=== PATIENT | female | born 1965 | race Caucasian/White ===

== ENCOUNTER 2024-01-01 23:05 | Observation (INO) ==
--- NOTE | 2024-01-01 23:29 | Emergency Department Note ---
Impression & Plan Alteration in vision ED Provider Note HISTORY OF PRESENT ILLNESS: Patient is a 58-year-old female presenting with loss of vision in her right eye. Patient reports that yesterday she noticed black floaters occurring in a curvilinear pattern from the right lateral visual field into her lower visual field in the right eye. States that she just thought it was her blood pressure. She states that today she noticed an increase in the floaters and "sometime around lunchtime" she noticed that she could not see where the floaters had previously been located. Reports that it was a black curvilinear shape involving the lateral part of her right eye and into her inferior visual field. Denies any DVT or PE history. She not on any anticoagulation. She does take a baby aspirin daily. Denies any recent head injuries or chiropractic manipulation of her neck. Denies any numbness, tingling or weakness in her extremities. Denies any slurred speech or difficulty swallowing. She does report that yesterday she was bit by a tick and was able to remove the tick on her right upper arm. Denies any chest pain or shortness of breath. ROS: as above PHYSICAL EXAM: Constitutional: Patient appears in no acute distress. HENT: Head: Normocephalic and atraumatic. Eyes: EOMI, PERRL Mouth/Throat: Mucous membranes moist. Neck: Trachea midline. Neck supple. Cardiovascular: RRR, No murmurs, rubs or gallops. Intact distal pulses. Pulmonary/Chest: No respiratory distress. Breath sounds clear and equal bilaterally. No wheezes or rales. Abdominal: Abdomen soft, no tenderness, rebound or guarding. Musculoskeletal: No edema, tenderness or deformity noted. Skin: Warm and dry. No rash, erythema, pallor or cyanosis Psychiatric: Appropriate mood and affect for situation. Neurological: Alert and keenly responsive. Facies symmetric. Able to raise eyebrows, close eyes, smile, puff mouth, stick out tongue, move tongue left and right and raise palate symmetrically. Able to shrug shoulders. PERRLA. SILT to forehead below eye and at jawline. Can hear soft noise bilaterally. Strength 5/5 in bilateral upper and lower extremities. SILT throughout bilateral upper and lower extremities. When visual wiggins are tested, patient is able to see in the periphery and distinguish number of fingers held up for both eyes. It appears she has intact lateral and medial visual wiggins. MDM: - Vitals signs showed hypertension - History obtained via patient. History as above. - Chronic conditions affecting care: HTN; HLD - Differential diagnoses include, but are not limited to: CVA; intracranial hemorrhage; retinal detachment; hypertensive urgency - Order placed for continuous cardiac monitoring. At this time, monitor showed rate of 66 bpm with normal sinus rhythm, per my interpretation. - External medical records reviewed. - EKG interpreted by myself showed normal sinus rhythm. Rate 66 bpm. QT 426. No acute ischemic changes. - Laboratory workup interpreted by myself showed normal WBC; normal PT/INR; stable electrolytes; normal troponin - UA negative for infection. Noted to have blood. - CT head wo contrast negative for acute intracranial hemorrhage, per my interpretation - CTA head/neck negative for LVO or acute pathology. - I did do a bedside ocaez-he-wlzv ultrasound of the right eye to assess for retinal detachment. No obvious retinal detachment or papilledema. - Patient is outside of the window for TNK, given her unknown last known well. She also has no evidence of LVO. Will admit to hospital service for further strokelike workup, including echocardiogram and MRI. - Discussion was had with bilingual case manager about patient's case and need for admission - Hospitalist consulted for admission - Patient admitted to [facility] service for further evaluation and management. ASSESSMENT AND PLAN: Diagnosis: alteration in vision Plan: admit Past Med/Surg History Problem List (Updated 01/02/24 @ 02:10 by Haleigh Renee MD) Alteration in vision (Acute) Social History Smoking Status: Current every day smoker Tobacco Type: Cigarettes and E-cigarettes / Vaping Preferred Language: [place] Feels Safe at Home: Yes Results & Data (ED) Vital Signs Vital Signs - 24 hr 01/01/24 23:12 01/01/24 23:33 01/01/24 23:40 Temperature 36.5 C Temperature Source Temporal Artery Scan Pulse Rate 66 70 63 Pulse Rate [Apical] Pulse Rhythm Regular Pulse Rhythm [Apical] Pulse Strength [Apical] Respiratory Rate 20 18 Respiratory Effort / Characteristics Respiratory Depth Respiratory Pattern Blood Pressure 186/90 H Blood Pressure [Right Arm] Blood Pressure Mean 122 Blood Pressure Mean [Right Arm] Blood Pressure Position [Right Arm] Pulse Oximetry 98 96 Oxygen Delivery Method Room Air Room Air Sepsis Recent Fever Within 48 Hours No Sepsis New/Unexplained Change in Mental Status No Sepsis Action Taken by Nursing No Action Required 01/02/24 00:06 Temperature Temperature Source Pulse Rate Pulse Rate [Apical] 63 Pulse Rhythm Pulse Rhythm [Apical] Regular Pulse Strength [Apical] Normal Respiratory Rate 18 Respiratory Effort / Characteristics Non-Labored Spontaneous Respiratory Depth Normal Respiratory Pattern Regular Blood Pressure Blood Pressure [Right Arm] 178/96 H Blood Pressure Mean Blood Pressure Mean [Right Arm] 123 Blood Pressure Position [Right Arm] Lying Pulse Oximetry 98 Oxygen Delivery Method Room Air Sepsis Recent Fever Within 48 Hours Sepsis New/Unexplained Change in Mental Status Sepsis Action Taken by Nursing Laboratory Data 01/01/24 23:33 01/01/24 23:33 Lab Results 01/01/24 01/01/24 01/01/24 Range/Units 23:33 23:40 23:46 WBC 6.98 (4.8-10.8) K/ul RBC 4.95 (4.20-5.40) M/uL Hgb 13.9 (12.0-16.0) g/dl POC Hgb 14.3 (12.0-16.0) g/dl Hct 41.7 (37.0-47.0) % POC Hct 42 (37-47) % MCV 84.2 (80.0-100.0) fL MCH 28.1 (25.0-34.0) pg MCHC 33.3 (32.0-36.0) g/dL RDW Std Deviation 41.5 (36.4-46.3) fL RDW Coeff of [place] 13.4 (11.5-14.5) % Plt Count 256 (130-400) K/uL MPV 11.0 (9.4-12.4) fL Immature Gran % (Auto) 0.3 % Neut % (Auto) 42.8 % Lymph % (Auto) 44.6 % [place] % (Auto) 8.7 % Eos % (Auto) 2.6 % Baso % (Auto) 1.0 % Neut # (Auto) 2.99 (1.40-6.50) K/uL Lymph # (Auto) 3.11 (1.20-3.40) K/uL [place] # (Auto) 0.61 H (0.11-0.59) K/uL Eos # (Auto) 0.18 (0.00-0.50) K/uL Baso # (Auto) 0.07 (0.00-0.20) K/uL Immature Gran # (Auto) 0.02 (0.01-0.20) K/uL PT 10.3 (9.0-12.0) Seconds INR 0.9 (0.9-1.1) POC Sodium 138 (135-144) mmol/L Sodium 137 (136-145) mmol/L POC Potassium 4.1 (3.3-5.0) mmol/L Potassium 4.1 (3.5-5.1) mmol/L POC Chloride 106 (101-112) mmol/L Chloride 105 (98-107) mmol/L Carbon Dioxide 25 (21-32) mmol/L POC Total CO2 24 (24-31) mmol/L Anion Gap 7 (3-11) POC Anion Gap 14.0 L (16-25) mmol/L POC BUN 14 (7-18) mg/dl BUN 16 (6-23) mg/dl Creatinine 0.76 (0.6-1.2) mg/dl POC Creatinine 0.7 (0.6-1.3) mg/dl Est Cr Clr Drug Dosing 91.8 ml/min Est GFR ( Amer) 100.2 ml/min Est GFR (Non-Af Amer) 86.5 ml/min BUN/Creatinine Ratio 21.1 H (10-20) Glucose 104 H (70-99(Fasting)) mg/dl POC Glucose (other) 103 H (70-99) mg/dl Calcium 9.7 (8.6-10.3) mg/dl POC Ioniz Calcium Bird 1.21 (1.12-1.32) mmol/l Total Bilirubin 0.3 (0.2-1.0) mg/dl AST 21 (13-39) U/L ALT 24 (7-52) U/L Alkaline Phosphatase 61 (34-104) U/L Troponin I High Sens < 2.3 (0-14) pg/ml Total Protein 7.2 (6.0-8.3) gm/dl Albumin 4.6 (3.4-5.0) gm/dl Globulin 2.6 (2.5-4.0) gm/dl Albumin/Globulin Ratio 1.8 (0.9-2) Urine Color Yellow Urine Appearance Clear (Clear) Urine pH 5.5 (4.5-7.5) Ur Specific [place] 1.012 (1.000-1.030) Urine Protein Negative (Negative) Urine Glucose (UA) Negative (Negative) Urine Ketones Negative (Negative) Urine Blood 2+ H (Negative) Urine Nitrite Negative (Negative) Urine Bilirubin Negative (Negative) Urine Urobilinogen Negative (Negative) Ur Leukocyte Esterase 1+ H (Negative) Urine WBC (Auto) 0-5 (0-5) /hpf Urine RBC (Auto) 11-20 H (0-2) /hpf U Hyaline Cast (Auto) 0-2 (0-2) /lpf U Epithel Cells (Auto) 0-2 (0-2) /hpf Urine Bacteria (Auto) None Seen (None Seen) Administered Medications Discontinued Medications Ioversol (Optiray 320 125ml) 120 ml IV ONCE ONE Stop: 01/01/24 23:49 Last Admin: 01/01/24 23:51 Dose: 120 ml Documented By: JAR Imaging Data Radiologist's Impression: Head CT 01/01/24 23:18 Exam(s): CT HEAD Without Contrast EXAM: CT Head Without Intravenous Contrast CLINICAL HISTORY: R eye visual field deficit. TECHNIQUE: Axial computed tomography images of the head/brain without intravenous contrast. CTDI is 37.87 mGy and DLP is 546.36 mGy-cm. Automated exposure control was utilized for the study. A dose lowering technique was utilized adhering to the principles of ALARA. COMPARISON: No relevant prior studies available. FINDINGS: Brain: No intracranial hemorrhage. No significant mass effect. No evidence for cortical infarct. No significant white matter disease. Ventricles: No midline shift or ventriculomegaly. Bones/joints: Unremarkable. No acute fracture. Soft tissues: Unremarkable. Sinuses: Unremarkable as visualized. No acute sinusitis. Mastoid air cells: Unremarkable as visualized. No mastoid effusion. Orbits: Thick section imaging through the orbits and globes demonstrates no significant asymmetry or abnormality. IMPRESSION: No acute intracranial process identified. Electronically signed by: Ariel Jackson MD 01/02/24 00:34 AM Head CTA 01/01/24 23:18 Exam(s): CTA HEAD With Contrast IV Amt: 120 mls optiray 320 EXAM: CT Angiography Head With Intravenous Contrast CLINICAL HISTORY: Reason for exam: R eye visual field deficit. TECHNIQUE: Axial computed tomographic angiography images of the head with intravenous contrast. CTDI is 13.92 mGy and DLP is 498.04 mGy-cm. Automated exposure control was utilized for the study. A dose lowering technique was utilized adhering to the principles of ALARA. 3D and MIP reconstructed images were created and reviewed. CONTRAST: Patient received 120 mls optiray 320 of IV contrast COMPARISON: CT brain 01-01-2024. FINDINGS: Right internal carotid artery: No acute abnormality. Intracranial segment is patent with no significant stenosis. No aneurysm. Right anterior cerebral artery: Unremarkable. No occlusion or significant stenosis. No aneurysm. Right middle cerebral artery: Unremarkable. No occlusion or significant stenosis. No aneurysm. Right posterior cerebral artery: Unremarkable. No occlusion or significant stenosis. No aneurysm. Right vertebral artery: Unremarkable as visualized. Left internal carotid artery: No acute abnormality. Intracranial segment is patent with no significant stenosis. No aneurysm. Left anterior cerebral artery: Unremarkable. No occlusion or significant stenosis. No aneurysm. Left middle cerebral artery: Unremarkable. No occlusion or significant stenosis. No aneurysm. Left posterior cerebral artery: Unremarkable. No occlusion or significant stenosis. No aneurysm. Left vertebral artery: Dominant. Basilar artery: Unremarkable. No occlusion or significant stenosis. No aneurysm. IMPRESSION: No large vessel occlusion. Electronically signed by: Raleigh Yin M.D. 01/02/24 00:50 AM Neck CTA 01/01/24 23:18 Exam(s): CTA NECK With Contrast IV Amt: 120 mls optiray 320 EXAM: CT Angiography Neck With Intravenous Contrast CLINICAL HISTORY: Reason for exam: R eye visual field deficit. TECHNIQUE: Routine carotid CT angiography protocol was performed with intravenous contrast. NASCET criteria using the distal ICAs for comparison were used for evaluation of stenoses. CTDI is 13.92 mGy and DLP is 498.04 mGy-cm. Automated exposure control was utilized for the study. A dose lowering technique was utilized adhering to the principles of ALARA. 3D and MIP reconstructed images were created and reviewed. CONTRAST: Patient received 120 mls optiray 320 of IV contrast COMPARISON: None. FINDINGS: VASCULATURE: Right common carotid artery: Unremarkable. No occlusion or significant stenosis. No dissection. Right internal carotid artery: Unremarkable. Extracranial segment is patent with no occlusion or significant stenosis. No dissection. Right external carotid artery: Unremarkable. No occlusion. Right vertebral artery: Unremarkable. No occlusion or significant stenosis. No dissection. Left common carotid artery: Unremarkable. No occlusion or significant stenosis. No dissection. Left internal carotid artery: Unremarkable. Extracranial segment is patent with no occlusion or significant stenosis. No dissection. Left external carotid artery: Unremarkable. No occlusion. Left vertebral artery: Unremarkable. No occlusion or significant stenosis. No dissection. NECK: Bones/joints: Unremarkable. No acute fracture. Soft tissues: Unremarkable. Lung apices: Clear. CAROTID STENOSIS REFERENCE USING NASCET CRITERIA: % ICA stenosis = (1 - narrowest ICA diameter/diameter of distal cervical ICA) x 100. Mild - <50% stenosis. Moderate - 50-69% stenosis. Severe - 70-94% stenosis. Near occlusion - 95-99% stenosis. Occluded - 100% stenosis. IMPRESSION: No hemodynamically significant stenosis. Electronically signed by: Raleigh Yin M.D. 01/02/24 00:55 AM Discharge Plan Visit Data Chief Complaint: Eye Problems Stated Complaint: CANNOT SEE OF R EYE ED Provider: Haleigh Renee Discharge Problem: Alteration in vision Forms Stand Alone Forms: My [facility] Referrals Referrals: PCP,NO [Primary Care Provider] -
[2024-01-01] MEDS: OPTIRAY 320 125ml IV ONE (23:51)
[2024-01-01 23:52] LABS: iSTAT Creatinine 0.7 mg/dl (0.6-1.3); iSTAT Hemoglobin 14.3 g/dl (12.0-16.0); iSTAT Ionized Calcium 1.21 mmol/l (1.12-1.32); iSTAT Potassium 4.1 mmol/L (3.3-5.0)
[2024-01-02 00:06] LABS: Alanine Aminotransferase 24 U/L (7-52); Albumin Globulin Ratio 1.8 (0.9-2); Albumin Level 4.6 gm/dl (3.4-5.0); Alkaline Phosphatase 61 U/L (34-104); Anion Gap 7 (3-11); Aspartate Aminotransferase 21 U/L (13-39); BUN Creatinine Ratio 21.1 (10-20); Basophils # (auto) 0.07 K/uL (0.00-0.20); Bilirubin,Total 0.3 mg/dl (0.2-1.0); Blood Urea Nitrogen 16 mg/dl (6-23); Calcium 9.7 mg/dl (8.6-10.3); Carbon Dioxide 25 mmol/L (21-32); Chloride 105 mmol/L (98-107); Creatinine Clr Calc Pharmacy 91.8 ml/min; Eosinophils # (auto) 0.18 K/uL (0.00-0.50); Eosinophils % (auto) 2.6 %; Est GFR (African American) 100.2 ml/min; Est GFR (Non-African American) 86.5 ml/min; Globulin 2.6 gm/dl (2.5-4.0); Glucose 104 mg/dl (70-99(Fasting)); Hematocrit (blood only) 41.7 % (37.0-47.0); Hemoglobin 13.9 g/dl (12.0-16.0); Immature Granulocytes # (auto) 0.02 K/uL (0.01-0.20); Immature Granulocytes % (auto) 0.3 %; Lymphocytes # (auto) 3.11 K/uL (1.20-3.40); Lymphocytes % (auto) 44.6 %; Mean Corpuscular Hemoglobin 28.1 pg (25.0-34.0); Mean Corpuscular Hgb Conc 33.3 g/dL (32.0-36.0); Mean Corpuscular Volume 84.2 fL (80.0-100.0); Monocytes # (auto) 0.61 K/uL (0.11-0.59); Monocytes % (auto) 8.7 %; Neutrophils # (auto) 2.99 K/uL (1.40-6.50); Neutrophils % (auto) 42.8 %; Platelet Count 256 K/uL (130-400); Potassium 4.1 mmol/L (3.5-5.1); RDW Coefficient of Variation 13.4 % (11.5-14.5); RDW Standard Deviation 41.5 fL (36.4-46.3); Red Blood Count 4.95 M/uL (4.20-5.40); Sodium 137 mmol/L (136-145); Total Protein 7.2 gm/dl (6.0-8.3); White Blood Count 6.98 K/ul (4.8-10.8)
[2024-01-02 00:14] LABS: Troponin I High Sensitivity < 2.3 pg/ml (0-14)
[2024-01-02 00:20] LABS: Appearance Urine Clear (Clear); Bacteria Urine Automated None Seen (None Seen); Bilirubin Urine Negative (Negative); Blood Urine 2+ (Negative); Cast Urine Automated 0-2 /lpf (0-2); Color Urine Yellow; Epithelial Cell Urine Auto 0-2 /hpf (0-2); Glucose Urine UA Negative (Negative); Ketones Urine Negative (Negative); Leukocyte Esterase Urine 1+ (Negative); Nitrite Urine Negative (Negative); Protein Urine Negative (Negative); Specific Gravity Urine 1.012 (1.000-1.030); Urobilinogen Urine Negative (Negative); WBC Urine Automated 0-5 /hpf (0-5); pH Urine 5.5 (4.5-7.5)
--- NOTE | 2024-01-02 00:35 | CT Scan Report ---
Exam(s): CT HEAD Without Contrast EXAM: CT Head Without Intravenous Contrast CLINICAL HISTORY: R eye visual field deficit. TECHNIQUE: Axial computed tomography images of the head/brain without intravenous contrast. CTDI is 37.87 mGy and DLP is 546.36 mGy-cm. Automated exposure control was utilized for the study. A dose lowering technique was utilized adhering to the principles of ALARA. COMPARISON: No relevant prior studies available. FINDINGS: Brain: No intracranial hemorrhage. No significant mass effect. No evidence for cortical infarct. No significant white matter disease. Ventricles: No midline shift or ventriculomegaly. Bones/joints: Unremarkable. No acute fracture. Soft tissues: Unremarkable. Sinuses: Unremarkable as visualized. No acute sinusitis. Mastoid air cells: Unremarkable as visualized. No mastoid effusion. Orbits: Thick section imaging through the orbits and globes demonstrates no significant asymmetry or abnormality. IMPRESSION: No acute intracranial process identified. Electronically signed by: Ariel Jackson MD 01/02/24 00:34 AM
[2024-01-02 00:43] LABS: INR 0.9 (0.9-1.1); Prothrombin Time 10.3 Seconds (9.0-12.0)
--- NOTE | 2024-01-02 00:51 | CT Scan Report ---
Exam(s): CTA HEAD With Contrast IV Amt: 120 mls optiray 320 EXAM: CT Angiography Head With Intravenous Contrast CLINICAL HISTORY: Reason for exam: R eye visual field deficit. TECHNIQUE: Axial computed tomographic angiography images of the head with intravenous contrast. CTDI is 13.92 mGy and DLP is 498.04 mGy-cm. Automated exposure control was utilized for the study. A dose lowering technique was utilized adhering to the principles of ALARA. 3D and MIP reconstructed images were created and reviewed. CONTRAST: Patient received 120 mls optiray 320 of IV contrast COMPARISON: CT brain 01-01-2024. FINDINGS: Right internal carotid artery: No acute abnormality. Intracranial segment is patent with no significant stenosis. No aneurysm. Right anterior cerebral artery: Unremarkable. No occlusion or significant stenosis. No aneurysm. Right middle cerebral artery: Unremarkable. No occlusion or significant stenosis. No aneurysm. Right posterior cerebral artery: Unremarkable. No occlusion or significant stenosis. No aneurysm. Right vertebral artery: Unremarkable as visualized. Left internal carotid artery: No acute abnormality. Intracranial segment is patent with no significant stenosis. No aneurysm. Left anterior cerebral artery: Unremarkable. No occlusion or significant stenosis. No aneurysm. Left middle cerebral artery: Unremarkable. No occlusion or significant stenosis. No aneurysm. Left posterior cerebral artery: Unremarkable. No occlusion or significant stenosis. No aneurysm. Left vertebral artery: Dominant. Basilar artery: Unremarkable. No occlusion or significant stenosis. No aneurysm. IMPRESSION: No large vessel occlusion. Electronically signed by: Raleigh Yin M.D. 01/02/24 00:50 AM
--- NOTE | 2024-01-02 00:55 | CT Scan Report ---
Exam(s): CTA NECK With Contrast IV Amt: 120 mls optiray 320 EXAM: CT Angiography Neck With Intravenous Contrast CLINICAL HISTORY: Reason for exam: R eye visual field deficit. TECHNIQUE: Routine carotid CT angiography protocol was performed with intravenous contrast. NASCET criteria using the distal ICAs for comparison were used for evaluation of stenoses. CTDI is 13.92 mGy and DLP is 498.04 mGy-cm. Automated exposure control was utilized for the study. A dose lowering technique was utilized adhering to the principles of ALARA. 3D and MIP reconstructed images were created and reviewed. CONTRAST: Patient received 120 mls optiray 320 of IV contrast COMPARISON: None. FINDINGS: VASCULATURE: Right common carotid artery: Unremarkable. No occlusion or significant stenosis. No dissection. Right internal carotid artery: Unremarkable. Extracranial segment is patent with no occlusion or significant stenosis. No dissection. Right external carotid artery: Unremarkable. No occlusion. Right vertebral artery: Unremarkable. No occlusion or significant stenosis. No dissection. Left common carotid artery: Unremarkable. No occlusion or significant stenosis. No dissection. Left internal carotid artery: Unremarkable. Extracranial segment is patent with no occlusion or significant stenosis. No dissection. Left external carotid artery: Unremarkable. No occlusion. Left vertebral artery: Unremarkable. No occlusion or significant stenosis. No dissection. NECK: Bones/joints: Unremarkable. No acute fracture. Soft tissues: Unremarkable. Lung apices: Clear. CAROTID STENOSIS REFERENCE USING NASCET CRITERIA: % ICA stenosis = (1 - narrowest ICA diameter/diameter of distal cervical ICA) x 100. Mild - <50% stenosis. Moderate - 50-69% stenosis. Severe - 70-94% stenosis. Near occlusion - 95-99% stenosis. Occluded - 100% stenosis. IMPRESSION: No hemodynamically significant stenosis. Electronically signed by: Raleigh Yin M.D. 01/02/24 00:55 AM
[2024-01-02] MEDS: LORazepam 0.5 MG TAB PO STA (02:28)
[2024-01-02] MEDS: Patient's ALLERGY Info needs ENTERED STA (02:46)
--- NOTE | 2024-01-02 02:50 | History & Physical Report ---
Date of Service January 02, 2024 Assessment & Plan (1) Alteration in vision: Plan: 58-year-old female with past med history significant for hypertension, hyperlipidemia, hypothyroidism, depression and anxiety, obstructive sleep apnea on CPAP, who is visiting from [facility] presents with loss of vision in the right eye medial aspect superior quadrant since afternoon. Patient seem to have some issues with vision since yesterday but since afternoon she lost vision as mentioned above. Denies any weakness. speech is okay. No difficulty swallowing. Had headache few days ago that got resolved. Has some runny nose from allergies. No sore throat. Currently no cough. No fevers. No chest pain or shortness of breath. No nausea. No abdominal pain. Normal bladder movements. States her stools are very dark. States she is feeling anxious. Asking for antianxiety medication. hemodynamics are okay. Yesterday had tick bite on right forearm while she was gardening and took it out. She is very positive that tick was not there more than few minutes. alteration in vision vision loss in right eye medial aspect superior quadrant CT head CTA head and neck unremarkable will follow MRI scan continue home aspirin and statin for now Stroke Workup was with echo, speech evaluation and PT OT elevation neuroconsult in a.m. further recommendation telemetry obstructive sleep apnea CPAP nightly hypertension permissive hypertension continue home losartan will monitor hypothyroidism on Synthyroid follow TSH hyperlipidemia on statin depression anxiety on fluoxetine trazodone as needed tobacco abuse needs counseling nicotine patch DVT prophylaxis SCDs disposition telemetry full code History of Present Illness Chief Complaint: right eye vision loss superior quadrant of medial aspect Primary Care Provider: NO PCP 58-year-old female with past med history significant for hypertension, hyperlipidemia, hypothyroidism, depression and anxiety, obstructive sleep apnea on CPAP, who is visiting from [facility] presents with loss of vision in the right eye medial aspect superior quadrant since afternoon. Patient seem to have some issues with vision since yesterday but since afternoon she lost vision as mentioned above. Denies any weakness. speech is okay. No difficulty swallowing. Had headache few days ago that got resolved. Has some runny nose from allergies. No sore throat. Currently no cough. No fevers. No chest pain or shortness of breath. No nausea. No abdominal pain. Normal bladder movements. States her stools are very dark. States she is feeling anxious. Asking for antianxiety medication. hemodynamics are okay. Yesterday had tick bite on right forearm while she was gardening and took it out. She is very positive that tick was not there more than few minutes. Past med history. As mentioned above past surgical history. Repair of meniscal tear in the left knee. Social history. Smokes 3/4 pack a day of shots cigarettes for many years. Alcohol occasional. medical marijuana. Family state. Father had cancer. Mother had diabetes and depression. Allergies Allergy/AdvReac Type Severity Reaction Status Date / Time Penicillins Allergy Unknown Verified 01/02/24 02:36 Home Medications Medication Instructions Recorded Confirmed Type aspirin 81 mg tablet,delayed 81 mg PO DAILY 01/02/24 01/02/24 History release fluoxetine 40 mg capsule 60 mg PO DAILY 01/02/24 01/02/24 History levothyroxine 50 mcg tablet 50 mcg PO DAILY 01/02/24 01/02/24 History losartan 50 mg tablet 50 mg PO DAILY 01/02/24 01/02/24 History pravastatin 20 mg tablet 40 mg PO DAILY 01/02/24 01/02/24 History trazodone 100 mg tablet 100 mg PO HS PRN Insomnia 01/02/24 01/02/24 History Past Med/Surg History Problem List (Updated 01/02/24 @ 02:10 by Haleigh Renee MD) Alteration in vision (Acute) Social History Smoking Status: Current every day smoker Tobacco Type: Cigarettes Second Hand Exposure: No; Do You Dip or Chew Tobacco: No; Tobacco Cessation Education Requested by Patient: No Hx Alcohol Use: Yes Hx Substance Use: Yes Last Used Substance: Hours (ago) Preferred Language: Kiswahili Communication Ability: Effective Web Analyst Required: No Beliefs That Will Affect Care: None Current Living Situation: Significant Other Other Information That Helps Us Care for You: No Feels Safe at Home: Yes Safety Concerns: Feels Safe At This Time Assistive Devices: CPAP Review of Systems Review of Systems: All systems reviewed & are unremarkable except as noted in HPI & below Physical Exam Physical Exam: General- Not in distress Head- atraumatic Eyes- PERRL, EOMI, vison loss in right eye superior quadrant medial aspect? ENT- oropharynx clear Neck- supple, no JVD. Lungs- clear to auscultation no wheezing or crackles. Heart- regular rate and rhythm; no murmur, no gallop. Abdomen- normal bowel sounds, soft, nontender, no distension. Extremities- no pretibial edema, no erythema seen. Neuro- alert, oriented PERRL, EOMI; no facial palsy; no dysarthria; motor 5/5 bilaterally; co ordniation of movements normal. no pronator drift, sensations intact,position sense intact Skin- warm & dry Results & Data Results & Data Vital Signs (Past 12 Hours) Vital Signs Temp Pulse Pulse Resp BP BP Pulse Ox 01/02/24 02:00 64 18 153/103 H 99 01/02/24 00:06 63 18 178/96 H 98 01/01/24 23:40 63 18 96 01/01/24 23:33 70 01/01/24 23:12 36.5 C 66 20 186/90 H 98 O2 Del Method 01/02/24 02:00 Room Air 01/02/24 00:06 Room Air 01/01/24 23:40 Room Air 01/01/24 23:33 01/01/24 23:12 Room Air Diagnostic Findings Laboratory Results WBC 6.98 K/ul (4.8-10.8) 01/01/24 23:33 RBC 4.95 M/uL (4.20-5.40) 01/01/24 23:33 Hgb 13.9 g/dl (12.0-16.0) 01/01/24 23:33 POC Hgb 14.3 g/dl (12.0-16.0) 01/01/24 23:40 Hct 41.7 % (37.0-47.0) 01/01/24 23:33 POC Hct 42 % (37-47) 01/01/24 23:40 MCV 84.2 fL (80.0-100.0) 01/01/24 23:33 MCH 28.1 pg (25.0-34.0) 01/01/24 23:33 MCHC 33.3 g/dL (32.0-36.0) 01/01/24 23:33 RDW Std Deviation 41.5 fL (36.4-46.3) 01/01/24 23:33 RDW Coeff of [place] 13.4 % (11.5-14.5) 01/01/24 23: Plt Count 256 K/uL (130-400) 01/01/24 23:33 MPV 11.0 fL (9.4-12.4) 01/01/24 23:33 Immature Gran % (Auto) 0.3 % 01/01/24 23: Neut % (Auto) 42.8 % 01/01/24 23: Lymph % (Auto) 44.6 % 01/01/24 23:33 Morton % (Auto) 8.7 % 01/01/24 23: Eos % (Auto) 2.6 % 01/01/24 23: Baso % (Auto) 1.0 % 01/01/24 23: Neut # (Auto) 2.99 K/uL (1.40-6.50) 01/01/24 23: Lymph # (Auto) 3.11 K/uL (1.20-3.40) 01/01/24 23: Morton # (Auto) 0.61 K/uL (0.11-0.59) H 01/01/24 23: Eos # (Auto) 0.18 K/uL (0.00-0.50) 01/01/24 23: Baso # (Auto) 0.07 K/uL (0.00-0.20) 01/01/24 23: Immature Gran # (Auto) 0.02 K/uL (0.01-0.20) 01/01/24 23: PT 10.3 Seconds (9.0-12.0) 01/01/24 23:33 INR 0.9 (0.9-1.1) 01/01/24 23:33 POC Sodium 138 mmol/L (135-144) 01/01/24 23:40 Sodium 137 mmol/L (136-145) 01/01/24 23:33 POC Potassium 4.1 mmol/L (3.3-5.0) 01/01/24 23:40 Potassium 4.1 mmol/L (3.5-5.1) 01/01/24 23:33 POC Chloride 106 mmol/L (101-112) 01/01/24 23:40 Chloride 105 mmol/L (98-107) 01/01/24 23:33 Carbon Dioxide 25 mmol/L (21-32) 01/01/24 23:33 POC Total CO2 24 mmol/L (24-31) 01/01/24 23:40 Anion Gap 7 (3-11) 01/01/24 23:33 POC Anion Gap 14.0 mmol/L (16-25) L 01/01/24 23:40 POC BUN 14 mg/dl (7-18) 01/01/24 23:40 BUN 16 mg/dl (6-23) 01/01/24 23:33 Creatinine 0.76 mg/dl (0.6-1.2) 01/01/24 23:33 POC Creatinine 0.7 mg/dl (0.6-1.3) 01/01/24 23:40 Est Cr Clr Drug Dosing 91.8 ml/min 01/01/24 23:33 Est GFR ( Amer) 100.2 ml/min 01/01/24 23:33 Est GFR (Non-Af Amer) 86.5 ml/min 01/01/24 23:33 BUN/Creatinine Ratio 21.1 (10-20) H 01/01/24 23:33 Glucose 104 mg/dl (70-99(Fasting)) H 01/01/24 23:33 POC Glucose (other) 103 mg/dl (70-99) H 01/01/24 23:40 Calcium 9.7 mg/dl (8.6-10.3) 01/01/24 23:33 POC Ioniz Calcium Bird 1.21 mmol/l (1.12-1.32) 01/01/24 23:40 Total Bilirubin 0.3 mg/dl (0.2-1.0) 01/01/24 23:33 AST 21 U/L (13-39) 01/01/24 23:33 ALT 24 U/L (7-52) 01/01/24 23:33 Alkaline Phosphatase 61 U/L (34-104) 01/01/24 23:33 Troponin I High Sens < 2.3 pg/ml (0-14) 01/01/24 23:33 Total Protein 7.2 gm/dl (6.0-8.3) 01/01/24 23:33 Albumin 4.6 gm/dl (3.4-5.0) 01/01/24 23:33 Globulin 2.6 gm/dl (2.5-4.0) 01/01/24 23:33 Albumin/Globulin Ratio 1.8 (0.9-2) 01/01/24 23:33 Urine Color Yellow 01/01/24 23:46 Urine Appearance Clear (Clear) 01/01/24 23:46 Urine pH 5.5 (4.5-7.5) 01/01/24 23:46 Ur Specific [place] 1.012 (1.000-1.030) 01/01/24 23:46 Urine Protein Negative (Negative) 01/01/24 23:46 Urine Glucose (UA) Negative (Negative) 01/01/24 23:46 Urine Ketones Negative (Negative) 01/01/24 23:46 Urine Blood 2+ (Negative) H 01/01/24 23:46 Urine Nitrite Negative (Negative) 01/01/24 23:46 Urine Bilirubin Negative (Negative) 01/01/24 23:46 Urine Urobilinogen Negative (Negative) 01/01/24 23:46 Ur Leukocyte Esterase 1+ (Negative) H 01/01/24 23:46 Urine WBC (Auto) 0-5 /hpf (0-5) 01/01/24 23:46 Urine RBC (Auto) 11-20 /hpf (0-2) H 01/01/24 23:46 U Hyaline Cast (Auto) 0-2 /lpf (0-2) 01/01/24 23:46 U Epithel Cells (Auto) 0-2 /hpf (0-2) 01/01/24 23:46 Urine Bacteria (Auto) None Seen (None Seen) 01/01/24 23:[address] 01/01/24 23:18 Exam(s): CT HEAD Without Contrast EXAM: CT Head Without Intravenous Contrast CLINICAL HISTORY: R eye visual field deficit. TECHNIQUE: Axial computed tomography images of the head/brain without intravenous contrast. CTDI is 37.87 mGy and DLP is 546.36 mGy-cm. Automated exposure control was utilized for the study. A dose lowering technique was utilized adhering to the principles of ALARA. COMPARISON: No relevant prior studies available. FINDINGS: Brain: No intracranial hemorrhage. No significant mass effect. No evidence for cortical infarct. No significant white matter disease. Ventricles: No midline shift or ventriculomegaly. Bones/joints: Unremarkable. No acute fracture. Soft tissues: Unremarkable. Sinuses: Unremarkable as visualized. No acute sinusitis. Mastoid air cells: Unremarkable as visualized. No mastoid effusion. Orbits: Thick section imaging through the orbits and globes demonstrates no significant asymmetry or abnormality. IMPRESSION: No acute intracranial process identified. Electronically signed by: Ariel Jackson MD 01/02/24 00:34 AM Head CTA 01/01/24 23:18 Exam(s): CTA HEAD With Contrast IV Amt: 120 mls optiray 320 EXAM: CT Angiography Head With Intravenous Contrast CLINICAL HISTORY: Reason for exam: R eye visual field deficit. TECHNIQUE: Axial computed tomographic angiography images of the head with intravenous contrast. CTDI is 13.92 mGy and DLP is 498.04 mGy-cm. Automated exposure control was utilized for the study. A dose lowering technique was utilized adhering to the principles of ALARA. 3D and MIP reconstructed images were created and reviewed. CONTRAST: Patient received 120 mls optiray 320 of IV contrast COMPARISON: CT brain 01-01-2024. FINDINGS: Right internal carotid artery: No acute abnormality. Intracranial segment is patent with no significant stenosis. No aneurysm. Right anterior cerebral artery: Unremarkable. No occlusion or significant stenosis. No aneurysm. Right middle cerebral artery: Unremarkable. No occlusion or significant stenosis. No aneurysm. Right posterior cerebral artery: Unremarkable. No occlusion or significant stenosis. No aneurysm. Right vertebral artery: Unremarkable as visualized. Left internal carotid artery: No acute abnormality. Intracranial segment is patent with no significant stenosis. No aneurysm. Left anterior cerebral artery: Unremarkable. No occlusion or significant stenosis. No aneurysm. Left middle cerebral artery: Unremarkable. No occlusion or significant stenosis. No aneurysm. Left posterior cerebral artery: Unremarkable. No occlusion or significant stenosis. No aneurysm. Left vertebral artery: Dominant. Basilar artery: Unremarkable. No occlusion or significant stenosis. No aneurysm. IMPRESSION: No large vessel occlusion. Electronically signed by: Raleigh Yin M.D. 01/02/24 00:50 AM Neck CTA 01/01/24 23:18 Exam(s): CTA NECK With Contrast IV Amt: 120 mls optiray 320 EXAM: CT Angiography Neck With Intravenous Contrast CLINICAL HISTORY: Reason for exam: R eye visual field deficit. TECHNIQUE: Routine carotid CT angiography protocol was performed with intravenous contrast. NASCET criteria using the distal ICAs for comparison were used for evaluation of stenoses. CTDI is 13.92 mGy and DLP is 498.04 mGy-cm. Automated exposure control was utilized for the study. A dose lowering technique was utilized adhering to the principles of ALARA. 3D and MIP reconstructed images were created and reviewed. CONTRAST: Patient received 120 mls optiray 320 of IV contrast COMPARISON: None. FINDINGS: VASCULATURE: Right common carotid artery: Unremarkable. No occlusion or significant stenosis. No dissection. Right internal carotid artery: Unremarkable. Extracranial segment is patent with no occlusion or significant stenosis. No dissection. Right external carotid artery: Unremarkable. No occlusion. Right vertebral artery: Unremarkable. No occlusion or significant stenosis. No dissection. Left common carotid artery: Unremarkable. No occlusion or significant stenosis. No dissection. Left internal carotid artery: Unremarkable. Extracranial segment is patent with no occlusion or significant stenosis. No dissection. Left external carotid artery: Unremarkable. No occlusion. Left vertebral artery: Unremarkable. No occlusion or significant stenosis. No dissection. NECK: Bones/joints: Unremarkable. No acute fracture. Soft tissues: Unremarkable. Lung apices: Clear. CAROTID STENOSIS REFERENCE USING NASCET CRITERIA: % ICA stenosis = (1 - narrowest ICA diameter/diameter of distal cervical ICA) x 100. Mild - <50% stenosis. Moderate - 50-69% stenosis. Severe - 70-94% stenosis. Near occlusion - 95-99% stenosis. Occluded - 100% stenosis. IMPRESSION: No hemodynamically significant stenosis. Electronically signed by: Raleigh Yin M.D. 01/02/24 00:55 AM ECG Additional Comments: ECG normal sinus rhythm rate of 66. No acute ST changes seen. Code Status & VTE Plan VTE Prophylaxis Plan VTE Prophylaxis will be ordered: Yes
[2024-01-02] MEDS: NICOTINE 14 MG/24 HR PATCH TD SCH (03:08)
[2024-01-02] MEDS ORDERED: traZODone HCL 100 MG TAB PO PRN (03:40)
[2024-01-02] MEDS ORDERED: NITROGLYCERIN SL 0.4 MG/TAB TAB SL PRN (03:40)
[2024-01-02] MEDS ORDERED: POLYETHYLENE (MIRALAX) 17 GM PACK PO PRN (03:40)
[2024-01-02] MEDS ORDERED: PHARMACIST DISCHARGE MED REC CONSULT PRN (03:40)
[2024-01-02] MEDS ORDERED: ACETAMINOPHEN 325 MG TAB PO PRN (03:40)
[2024-01-02] MEDS: SODIUM CHLORIDE 0.9% 1,000 ML IV SCH (04:25)
[2024-01-02 04:38] LABS: Basophils # (auto) 0.06 K/uL (0.00-0.20); Basophils % (auto) 1.1 %; Eosinophils # (auto) 0.13 K/uL (0.00-0.50); Eosinophils % (auto) 2.3 %; Hemoglobin 13.6 g/dl (12.0-16.0); Immature Granulocytes # (auto) 0.01 K/uL (0.01-0.20); Immature Granulocytes % (auto) 0.2 %; Lymphocytes # (auto) 2.02 K/uL (1.20-3.40); Lymphocytes % (auto) 36.1 %; Mean Corpuscular Hemoglobin 27.8 pg (25.0-34.0); Mean Corpuscular Hgb Conc 33.2 g/dL (32.0-36.0); Mean Corpuscular Volume 83.7 fL (80.0-100.0); Mean Platelet Volume 10.7 fL (9.4-12.4); Monocytes # (auto) 0.51 K/uL (0.11-0.59); Monocytes % (auto) 9.1 %; Neutrophils # (auto) 2.87 K/uL (1.40-6.50); Neutrophils % (auto) 51.2 %; Platelet Count 219 K/uL (130-400); RDW Coefficient of Variation 13.3 % (11.5-14.5)
[2024-01-02 04:50] LABS: BUN Creatinine Ratio 16.7 (10-20); Calcium 9.5 mg/dl (8.6-10.3); Chol HDL Ratio 3.3 (0-5); Creatinine Clr Calc Pharmacy 96.9 ml/min; Est GFR (Non-African American) 92.3 ml/min; Potassium 4.4 mmol/L (3.5-5.1)
[2024-01-02 05:06] LABS: Thyroid Stimulating Hormone 3.045 uIu/ml (0.300-4.500)
[2024-01-02] MEDS: LEVOTHYROXINE SODIUM 50 MCG TABLET PO SCH (06:25)
[2024-01-02 07:09] LABS: Estimated Average Glucose 126 mg/dl
[2024-01-02] MEDS: ALPRAZolam 0.25 MG TABLET PO PRN (09:06)
[2024-01-02] MEDS: GADOBUTROL 65ML VIAL IV ONE (09:49)
[2024-01-02] MEDS: FLUoxetine HCL 20 MG CAP PO SCH (10:19)
[2024-01-02] MEDS: PRAVASTATIN SOD 40 MG TAB PO SCH (10:19)
[2024-01-02] MEDS: ASPIRIN 81 MG ECTAB PO SCH (10:20)
[2024-01-02] MEDS: LOSARTAN POTASSIUM 50 MG TAB PO SCH (10:20)
--- NOTE | 2024-01-02 10:29 | Magnetic Resonance Report ---
Brain MRI WITH AND WITHOUT CONTRAST HISTORY: stroke like symptoms. right eye medial vision loss TECHNIQUE: Multiplanar multisequence MRI of the brain was performed both before and after the intrave nous administration of contrast. COMPARISON STUDY: None. FINDINGS: There are no areas of restricted diffusion to suggest acute infarction. The midline structu res are intact. The paranasal sinuses are clear. The mastoid air cells are clear. The ventricles and sulci are within normal limits for age. There is no mass, hematoma, midline shift. The major vascular flow-voids at the skull base are well maintained. Postcontrast sequences show no areas of abnormal e nhancement. The orbits are unremarkable. 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 IMPRESSION: No acute intracranial abnormality. ACT 112: Negative or not required by law. Electronically signed by: Devendra Lopez M.D. 01/02/2024 10:28 AM
--- NOTE | 2024-01-02 11:31 | Electrocardiogram Report ---
Test Reason : Blood Pressure : / mmHG Vent. Rate : 066 BPM Atrial Rate : 066 BPM P-R Int : 138 ms QRS Dur : 094 ms QT Int : 426 ms P-R-T Axes : 032 092 037 degrees QTc Int : 446 ms Normal sinus rhythm Rightward axis Borderline ECG No previous ECGs available Confirmed by Eros Littlejohn ([id number]) on 01/02/2024 11:31:26 AM Referred By: REFERRED SELF Confirmed By:Eros iLttlejohn
[2024-01-02] MEDS ORDERED: NICOTINE POLACRILEX 2 MG GUM MT PRN (11:40)
--- NOTE | 2024-01-02 15:28 | Communication Note ---
Date of Service: January 02, 2024 Patient presented with painless vision loss in right medial superior aspect CT head without contrast did not show any acute finding CTA head and neckno acute finding MRI brain did not show any acute stroke Awaiting neurology evaluation. On physical examination; Constitutional: WD/WN, vitals as above, NAD, sitting up in bed, pleasant, conversing easily Head: Normocephalic, Atraumatic Respiratory: normal respiratory effort, lungs clear to auscultation, no wheeze, rales, rhonchi. Normal insp/exp effort, no accessory muscle use Cardiovascular: RRR, no murmur, no edema Vessels: no JVD or carotid bruit Chest: normal inspection of chest Abdomen: normal bowel sounds, soft, nontender, no hepatosplenomegaly Musculoskeletal: no cyanosis or clubbing, extremities motor strength 5/5 Skin: no rashes, warm and dry normal turgor Neurologic: PERRL, EOMI, accommodation nl, no face palsy, no dysarthria CN's II- XI intact bilaterally and moves all extremities. Decrease in vision on right upper medial visual field Psychiatric: A+Ox3, euthymic affect Full progress note to follow tomorrow
--- NOTE | 2024-01-02 15:51 | Neurology Consultation ---
Date of Consultation January 02, 2024 Assessment & Plan (1) Alteration in vision: This seems to be improving or almost resolved, suspect retinal migraines Current NIH is 0. CT of the head shows no acute changes, CTA with mild aortic arch athero- MRI was personally reviewed and shows no evidence of acute or chronic infarcts. Plan Recommend tight control of blood pressure. Recommend starting magnesium 400 mg twice daily Riboflavin 400 mg daily. Continue aspirin 81 mg and pravastatin. If the patient were to experience any worsening symptoms or any significant headaches to present to emergency room. Telehealth Consultation Telehealth Information Telehealth Information: I performed this visit using a real-time telehealth connection between my location and the patients location ([facility]). After connecting through interactive tele-video, patient was identified by name and date of and/or wristband check.Patient (or authorized healthcare pharmaceutical service representative) was informed that this was a telemedicine visit and it was being conducted confidentially over secure lines. My office door was closed and no one else was present in the room with me.Patient (or authorized healthcare pharmaceutical service representative) provided consent to proceed with the visit, expressed an understanding of privacy and security of the telemedicine visit, and gave permission to have a hospital pharmaceutical service representative in the room in order to assist with the visit and to conduct portions of the visit, as needed. I informed the patient (or authorized healthcare pharmaceutical service representative) that I reviewed their record and presented the opportunity for them to ask any questions regarding the visit today. The patient agreed to participate. History of Present Illness Reason for Consultation: visual changes Requesting Physician: Robert Nava Attending Physician: Robert Nava MD History of Present Illness 58-year-old female patient with PMH of hypertension, hyperlipidemia, overweight, anxiety and depression who presented yesterday with visual changes, she describes right eye visual changes in the form of a dark shade to the medial aspect of her vision this involves the right eye, but does not involve the left eye. She reports that yesterday had a mild headache, and 2 weeks ago had a severe headache. She usually does not get significant headaches. She reports that she has missed her blood pressure pressure medications over the past several days because of being busy. Recently her pravastatin has been increased in dose given increased cholesterol levels. Her symptoms seem to have improved now, she is feeling better, when I was testing her she said this is almost gone maybe a little slight residual to the inner corner of her right arm. She does not have any double vision no slurred speech no numbness or weakness no headache no other focal neurological deficits. Allergies Allergy/AdvReac Type Severity Reaction Status Date / Time Penicillins Allergy Unknown Verified 01/02/24 02:36 Home Medications Medication Instructions Recorded Confirmed Type aspirin 81 mg tablet,delayed 81 mg PO DAILY 01/02/24 01/02/24 History release fluoxetine 40 mg capsule 60 mg PO DAILY 01/02/24 01/02/24 History levothyroxine 50 mcg tablet 50 mcg PO DAILY 01/02/24 01/02/24 History losartan 50 mg tablet 50 mg PO DAILY 01/02/24 01/02/24 History pravastatin 20 mg tablet 40 mg PO DAILY 01/02/24 01/02/24 History trazodone 100 mg tablet 100 mg PO HS PRN Insomnia 01/02/24 01/02/24 History Patient History Social History Smoking Status: Current every day smoker Tobacco Type: Cigarettes Second Hand Exposure: No; Do You Dip or Chew Tobacco: No; Tobacco Cessation Education Requested by Patient: No Hx Alcohol Use: Yes Hx Substance Use: Yes Last Used Substance: Hours (ago) Preferred Language: [place] Communication Ability: Effective Hospital Chaplain Required: No Beliefs That Will Affect Care: None Current Living Situation: Significant Other Other Information That Helps Us Care for You: No Feels Safe at Home: Yes Safety Concerns: Feels Safe At This Time Assistive Devices: CPAP Review of Systems Constitutional: Patient denies weight loss, fever, chills, and night sweats Eyes: Patient denies tearing, pain, and redness ENT: Patient denies pain, bleeding, rhinorrhea, and dysphagia Cardiovascular: Patient denies chest pain, palpitation, dyspnea at rest, and dyspnea with exertion Respiratory: Patient denies shortness of breath, cough, wheezing, and productive cough GI: Patient denies reflux, pain, constipation, and diarrhea Skin: Patient denies rash, dryness, and itching Allergies/Immune System: Patient denies rhinorrhea, seasonal allergies, reaction to current MEDS, and joint swelling Endocrine: Patient denies weight loss, weight gain, temperature intolerance, and excessive thirst Neurological: All negative unless mentioned in the HPI Physical Exam General Constitutional: Appearance normally developed Head and face: normocephalic and atraumatic Eyes: no ptosis, no anisocoria, and no dysconjugate gaze Respiratory: normal effort Cardiovascular: regular rhythm and regular rate Abdomen: non distended Skin: no rashes, lesions, or ulcers noted Psychiatric: normal judgement and insight, normal mood, and normal affect NEUROLOGIC EXAMINATION: Mental Status:alert, oriented to time, place, person, normal recent memory, normal remote memory, normal attention span, normal concentration, normal language and normal fund of knowledge Cranial Nerves: CN 2 - no visual defect on confrontation and pupils round, equal, reactive to light CN 3, 4, 6 - extra-ocular movements intact and no nystagmus CN 5 - facial sensation intact CN 7 - no facial asymmetry CN 8 - intact hearing CN 9, 10 - palate symmetric, normal gag CN 11 - good shoulder shrug CN 12 - tongue midline MOTOR: Strength was at least antigravity throughout, Pronator drift was absent and There were no abnormal movements SENSATION: intact and symmetric to pinprick, light touch, vibration and joint position GAIT: stable, no ataxia and can perform tandem walking COORDINATION: no ataxia with finger to nose testing and heel to blanco testing REFLEXES: cannot assess over telemedicine NIH Stroke Scale: 1a. Level of Consciousness: alert = 0 1b. LOC Questions: (month, age): both correct = 0 1c. LOC Commands (open and close eyes, make fist and let go using non-paretic hand): obeys both correctly = 0 2. Best Gaze (eyes open and patient follows examiner's finger or face): normal = 0 3. Visual (visual threat or finger counting in each quadrant): no loss = 0 4. Facial Palsy (show teeth, raise eye brows and squeeze eyes shut, or grimace symmetry in a comatose patient): normal = 0 5a. Motor Arm (extend arm (palms down) to 90 degrees and score drift/movement (10 seconds) - Left: no drift = 0 5b. Motor Arm: (extend arm (palms down) to 90 degrees and score drift/movement (10 seconds) - Right: no drift = 0 6a. Motor Leg (elevate leg 30 degrees and score drift/ movement (5 seconds) - Left: no drift = 0 6b. Motor Leg (elevate leg 30 degrees and score drift/ movement (5 seconds) - Right: no drift = 0 7. Limb Ataxia (finger to nose, heel down blanco): absent = 0 8. Sensory (pin prick to face, arm, trunk and leg, compare side to side): normal = 0 9. Best Language: no aphasia = 0 10. Dysarthria (evaluate speech clarity by patient repeating listed words): normal articulation = 0 11. Extinction and Inattention: no neglect = 0 Total: 0 Results & Data Vital Signs (Past 12 Hours) Vital Signs Temp Pulse Pulse Resp BP Pulse Ox O2 Del Method 01/02/24 12:07 36.4 C L 70 22 164/70 H 99 Room Air 01/02/24 10:10 37.1 C 68 27 H 147/96 H 98 Room Air 01/02/24 06:53 61 01/02/24 06:31 36.8 C 69 18 149/105 H 98 Room Air 01/02/24 04:00 68 18 140/65 98 Room Air Laboratory Results Laboratory Results - last 24 hr 01/01/24 01/01/24 01/01/24 23:33 23:40 23:46 WBC 6.98 RBC 4.95 Hgb 13.9 POC Hgb 14.3 Hct 41.7 POC Hct 42 MCV 84.2 MCH 28.1 MCHC 33.3 RDW Std Deviation 41.5 RDW Coeff of Dalton 13.4 Plt Count 256 MPV 11.0 Immature Gran % (Auto) 0.3 Neut % (Auto) 42.8 Lymph % (Auto) 44.6 [place] % (Auto) 8.7 Eos % (Auto) 2.6 Baso % (Auto) 1.0 Neut # (Auto) 2.99 Lymph # (Auto) 3.11 [place] # (Auto) 0.61 H Eos # (Auto) 0.18 Baso # (Auto) 0.07 Immature Gran # (Auto) 0.02 PT 10.3 INR 0.9 POC Sodium 138 Sodium 137 POC Potassium 4.1 Potassium 4.1 POC Chloride 106 Chloride 105 Carbon Dioxide 25 POC Total CO2 24 Anion Gap 7 POC Anion Gap 14.0 L POC BUN 14 BUN 16 Creatinine 0.76 POC Creatinine 0.7 Est Cr Clr Drug Dosing 91.8 Est GFR ( Amer) 100.2 Est GFR (Non-Af Amer) 86.5 BUN/Creatinine Ratio 21.1 H Glucose 104 H POC Glucose (other) 103 H Estimat Average Glucose Hemoglobin A1c Calcium 9.7 POC Ioniz Calcium Bird 1.21 Magnesium Total Bilirubin 0.3 AST 21 ALT 24 Alkaline Phosphatase 61 Troponin I High Sens < 2.3 Total Protein 7.2 Albumin 4.6 Globulin 2.6 Albumin/Globulin Ratio 1.8 Triglycerides Cholesterol LDL Cholesterol, Calc VLDL Cholesterol, Calc HDL Cholesterol Cholesterol/HDL Ratio TSH Urine Color Yellow Urine Appearance Clear Urine pH 5.5 Ur Specific Raleigh 1.012 Urine Protein Negative Urine Glucose (UA) Negative Urine Ketones Negative Urine Blood 2+ H Urine Nitrite Negative Urine Bilirubin Negative Urine Urobilinogen Negative Ur Leukocyte Esterase 1+ H Urine WBC (Auto) 0-5 Urine RBC (Auto) 11-20 H U Hyaline Cast (Auto) 0-2 U Epithel Cells (Auto) 0-2 Urine Bacteria (Auto) None Seen 01/02/24 04:21 WBC 5.60 RBC 4.90 Hgb 13.6 POC Hgb Hct 41.0 POC Hct MCV 83.7 MCH 27.8 MCHC 33.2 RDW Std Deviation 41.0 RDW Coeff of Dalton 13.3 Plt Count 219 MPV 10.7 Immature Gran % (Auto) 0.2 Neut % (Auto) 51.2 Lymph % (Auto) 36.1 [place] % (Auto) 9.1 Eos % (Auto) 2.3 Baso % (Auto) 1.1 Neut # (Auto) 2.87 Lymph # (Auto) 2.02 [place] # (Auto) 0.51 Eos # (Auto) 0.13 Baso # (Auto) 0.06 Immature Gran # (Auto) 0.01 PT INR POC Sodium Sodium 138 POC Potassium Potassium 4.4 POC Chloride Chloride 106 Carbon Dioxide 26 POC Total CO2 Anion Gap 6 POC Anion Gap POC BUN BUN 12 Creatinine 0.72 POC Creatinine Est Cr Clr Drug Dosing 96.9 Est GFR ( Amer) 107.0 Est GFR (Non-Af Amer) 92.3 BUN/Creatinine Ratio 16.7 Glucose 113 H POC Glucose (other) Estimat Average Glucose 126 Hemoglobin A1c 6.0 H Calcium 9.5 POC Ioniz Calcium Bird Magnesium 2.0 Total Bilirubin AST ALT Alkaline Phosphatase Troponin I High Sens Total Protein Albumin Globulin Albumin/Globulin Ratio Triglycerides 123 Cholesterol 195 LDL Cholesterol, Calc 111 VLDL Cholesterol, Calc 25 HDL Cholesterol 59 Cholesterol/HDL Ratio 3.3 TSH 3.045 Urine Color Urine Appearance Urine pH Ur Specific [place] Urine Protein Urine Glucose (UA) Urine Ketones Urine Blood Urine Nitrite Urine Bilirubin Urine Urobilinogen Ur Leukocyte Esterase Urine WBC (Auto) Urine RBC (Auto) U Hyaline Cast (Auto) U Epithel Cells (Auto) Urine Bacteria (Auto) Diagnostic Findings Head CT 01/01/24 23:18 Exam(s): CT HEAD Without Contrast EXAM: CT Head Without Intravenous Contrast CLINICAL HISTORY: R eye visual field deficit. TECHNIQUE: Axial computed tomography images of the head/brain without intravenous contrast. CTDI is 37.87 mGy and DLP is 546.36 mGy-cm. Automated exposure control was utilized for the study. A dose lowering technique was utilized adhering to the principles of ALARA. COMPARISON: No relevant prior studies available. FINDINGS: Brain: No intracranial hemorrhage. No significant mass effect. No evidence for cortical infarct. No significant white matter disease. Ventricles: No midline shift or ventriculomegaly. Bones/joints: Unremarkable. No acute fracture. Soft tissues: Unremarkable. Sinuses: Unremarkable as visualized. No acute sinusitis. Mastoid air cells: Unremarkable as visualized. No mastoid effusion. Orbits: Thick section imaging through the orbits and globes demonstrates no significant asymmetry or abnormality. IMPRESSION: No acute intracranial process identified. Electronically signed by: Ariel Jackson MD 01/02/24 00:34 AM Head CTA 01/01/24 23:18 Exam(s): CTA HEAD With Contrast IV Amt: 120 mls optiray 320 EXAM: CT Angiography Head With Intravenous Contrast CLINICAL HISTORY: Reason for exam: R eye visual field deficit. TECHNIQUE: Axial computed tomographic angiography images of the head with intravenous contrast. CTDI is 13.92 mGy and DLP is 498.04 mGy-cm. Automated exposure control was utilized for the study. A dose lowering technique was utilized adhering to the principles of ALARA. 3D and MIP reconstructed images were created and reviewed. CONTRAST: Patient received 120 mls optiray 320 of IV contrast COMPARISON: CT brain 01-01-2024. FINDINGS: Right internal carotid artery: No acute abnormality. Intracranial segment is patent with no significant stenosis. No aneurysm. Right anterior cerebral artery: Unremarkable. No occlusion or significant stenosis. No aneurysm. Right middle cerebral artery: Unremarkable. No occlusion or significant stenosis. No aneurysm. Right posterior cerebral artery: Unremarkable. No occlusion or significant stenosis. No aneurysm. Right vertebral artery: Unremarkable as visualized. Left internal carotid artery: No acute abnormality. Intracranial segment is patent with no significant stenosis. No aneurysm. Left anterior cerebral artery: Unremarkable. No occlusion or significant stenosis. No aneurysm. Left middle cerebral artery: Unremarkable. No occlusion or significant stenosis. No aneurysm. Left posterior cerebral artery: Unremarkable. No occlusion or significant stenosis. No aneurysm. Left vertebral artery: Dominant. Basilar artery: Unremarkable. No occlusion or significant stenosis. No aneurysm. IMPRESSION: No large vessel occlusion. Electronically signed by: Raleigh Yin M.D. 01/02/24 00:50 AM Neck CTA 01/01/24 23:18 Exam(s): CTA NECK With Contrast IV Amt: 120 mls optiray 320 EXAM: CT Angiography Neck With Intravenous Contrast CLINICAL HISTORY: Reason for exam: R eye visual field deficit. TECHNIQUE: Routine carotid CT angiography protocol was performed with intravenous contrast. NASCET criteria using the distal ICAs for comparison were used for evaluation of stenoses. CTDI is 13.92 mGy and DLP is 498.04 mGy-cm. Automated exposure control was utilized for the study. A dose lowering technique was utilized adhering to the principles of ALARA. 3D and MIP reconstructed images were created and reviewed. CONTRAST: Patient received 120 mls optiray 320 of IV contrast COMPARISON: None. FINDINGS: VASCULATURE: Right common carotid artery: Unremarkable. No occlusion or significant stenosis. No dissection. Right internal carotid artery: Unremarkable. Extracranial segment is patent with no occlusion or significant stenosis. No dissection. Right external carotid artery: Unremarkable. No occlusion. Right vertebral artery: Unremarkable. No occlusion or significant stenosis. No dissection. Left common carotid artery: Unremarkable. No occlusion or significant stenosis. No dissection. Left internal carotid artery: Unremarkable. Extracranial segment is patent with no occlusion or significant stenosis. No dissection. Left external carotid artery: Unremarkable. No occlusion. Left vertebral artery: Unremarkable. No occlusion or significant stenosis. No dissection. NECK: Bones/joints: Unremarkable. No acute fracture. Soft tissues: Unremarkable. Lung apices: Clear. CAROTID STENOSIS REFERENCE USING NASCET CRITERIA: % ICA stenosis = (1 - narrowest ICA diameter/diameter of distal cervical ICA) x 100. Mild - <50% stenosis. Moderate - 50-69% stenosis. Severe - 70-94% stenosis. Near occlusion - 95-99% stenosis. Occluded - 100% stenosis. IMPRESSION: No hemodynamically significant stenosis. Electronically signed by: Raleigh Yin M.D. 01/02/24 00:55 AM Brain MRI 01/02/24 03:40 Brain MRI WITH AND WITHOUT CONTRAST HISTORY: stroke like symptoms. right eye medial vision loss TECHNIQUE: Multiplanar multisequence MRI of the brain was performed both before and after the intravenous administration of contrast. COMPARISON STUDY: None. FINDINGS: There are no areas of restricted diffusion to suggest acute infarction. The midline structures are intact. The paranasal sinuses are clear. The mastoid air cells are clear. The ventricles and sulci are within normal limits for age. There is no mass, hematoma, midline shift. The major vascular flow-voids at the skull base are well maintained. Postcontrast sequences show no areas of abnormal enhancement. The orbits are unremarkable. 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 IMPRESSION: No acute intracranial abnormality. ACT 112: Negative or not required by law. Electronically signed by: Devendra Lopez M.D. 01/02/2024 10:28 AM Medications Administered Reviewed
--- NOTE | 2024-01-02 15:53 | Communication Note ---
Date of Service: January 02, 2024 Also follow up with ophthalmology as outpatient
[2024-01-02] MEDS ORDERED: STROKE PATIENT DISCHARGE STA (15:58)
--- NOTE | 2024-01-02 16:02 | Discharge Summary ---
Date of Service January 02, 2024 Admission HPI Per Admitting Provider 58-year-old female with past med history significant for hypertension, hyperlipidemia, hypothyroidism, depression and anxiety, obstructive sleep apnea on CPAP, who is visiting from [place] area presents with loss of vision in the right eye medial aspect superior quadrant since afternoon. Patient seem to have some issues with vision since yesterday but since afternoon she lost vision as mentioned above. Denies any weakness. speech is okay. No difficulty swallowing. Had headache few days ago that got resolved. Has some runny nose from allergies. No sore throat. Currently no cough. No fevers. No chest pain or shortness of breath. No nausea. No abdominal pain. Normal bladder movements. States her stools are very dark. States she is feeling anxious. Asking for antianxiety medication. hemodynamics are okay. Yesterday had tick bite on right forearm while she was gardening and took it out. She is very positive that tick was not there more than few minutes. Past med history. As mentioned above past surgical history. Repair of meniscal tear in the left knee. Social history. Smokes 3/4 pack a day of shots cigarettes for many years. Alcohol occasional. medical marijuana. Family state. Father had cancer. Mother had diabetes and depression. Admission Exam Per Admitting Provider General- Not in distress Head- atraumatic Eyes- PERRL, EOMI, vison loss in right eye superior quadrant medial aspect? ENT- oropharynx clear Neck- supple, no JVD. Lungs- clear to auscultation no wheezing or crackles. Heart- regular rate and rhythm; no murmur, no gallop. Abdomen- normal bowel sounds, soft, nontender, no distension. Extremities- no pretibial edema, no erythema seen. Neuro- alert, oriented PERRL, EOMI; no facial palsy; no dysarthria; motor 5/5 bilaterally; co ordniation of movements normal. no pronator drift, sensations intact,position sense intact Skin- warm & dry Principal Diagnosis Possible retinal migraine Discharge Data Allergies Allergy/AdvReac Type Severity Reaction Status Date / Time Penicillins Allergy Unknown Verified 01/02/24 02:36 Consultations 01/02/24 01:51 ED Decision to Admit Stat 01/02/24 08:00 Consult Neurology Routine Ordered Studies 01/01/24 23:18 CT head/brain wo con Stat CTA head w con [CT angio head w con] Stat CTA neck with con [CT angio neck with con] Stat 01/02/24 03:40 MR brain wo/w con Urgent Hospital Course (1) Alteration in vision: 58-year-old female with past med history significant for hypertension, hyperlipidemia, hypothyroidism, depression and anxiety, obstructive sleep apnea on CPAP, who is visiting from [facility] presents with loss of vision in the right eye medial aspect superior quadrant for 1 day. In the ED, patient underwent bedside [id number] ultrasound of right eye to assess for retinal detachment; no obvious retinal detachment or papilledema was identified by the ED physician. Patient underwent CT head, CTA head and neck and MRI brain which did not show any acute finding. Patient underwent evaluation by neurology; the likely cause for the migraine was thought secondary to retinal migraine. Recommended riboflavin and magnesium supplement. Discussion was done with the patient at the time of discharge; patient was offered continue inpatient stay and ophthalmology consultation. 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 Please note the above document was generated using voice recognition software. It may contain grammatical, syntax or spelling errors. Any formal questions or concerns about the content, text or information contained within the body of this dictation should be directly addressed to the provider for clarification Total Time Total Time Spent Total Time Spent (In Minutes): 45 Total Time Includes: Examination of the Patient, Discharge Planning, Medication Reconciliation, Communication With Other Providers and Other Discharge Plan Discharge Items Patient Disposition: Home - Self-Care Reason For Visit: STROKE-LIKE SYMPTOMS Discharge Diagnosis: Possible retinal migraine Activity: Resume your previous activity Non-emergency contact: Primary Care Provider Call non-emergency contact if: you have any medication questions and your symptoms worsen Follow-up/Referrals: PCP,NO [Primary Care Provider] - Diet: Regular Addtl Attending Provider Instructions: You were admitted to the hospital with partial vision loss on your right eye. You underwent evaluation for stroke with CT head, CTA head and neck and MRI brain which did not show any acute finding. You were evaluated by neurologist. They recommended following medication: 1) Riboflavin 400 mg once a day 2) Magnesium oxide 400 mg twice a day Please follow-up with your missile mechanic as soon as possible like we discussed. Pending Studies at Discharge: No Stand-Alone Forms: My [employer]he, Smoking Cessation Medications and DC Order Prescriptions: New riboflavin (vitamin B2) 400 mg tablet 400 mg PO DAILY Qty: 60 0RF magnesium oxide 400 mg magnesium tablet 400 mg PO BID Qty: 60 0RF Continued losartan 50 mg tablet 50 mg PO DAILY fluoxetine 40 mg capsule 60 mg PO DAILY levothyroxine 50 mcg tablet 50 mcg PO DAILY pravastatin 20 mg tablet 40 mg PO DAILY aspirin 81 mg Tablet,Delayed Release (Dr/Ec) 81 mg PO DAILY trazodone 100 mg Tablet 100 mg PO HS PRN (Reason: Insomnia) Discharge Orders: Discharge Order (Routine); Ordered 01/02/24 Ordered By: Robert Foley/Other Patient Handouts: Prediabetes, 5 Steps for Eating Healthier Admission Data Admit Date/Time: 01/02/24 02:36 Attending Provider: Robert Nava Admit Provider: Azael Flynn Primary Care Provider: PCP,NO Other Providers: Azael Flynn; Madeline Barry; Arjun Muse; Madeline Ga; Magen Del Castillo; Colton Siegel; Moncho Bolden; Dez Vazquez; Cyndi Lozano; Len Griffin; Olu Huerta; Eric Shin; Reese Hayes; Florence Bergman; Vivi Jacob; Dez Falk
[2024-01-02] MEDS: MAGNESIUM OXIDE 400 MG TAB PO SCH (16:10)
== END 2024-01-02 16:47 | disposition home or self-care (01) | DRG 103 ==
LOC: ED 23:05 → INTOOBSV 01-02 02:36 → EDINP 01-02 02:36 → 2E 01-02 10:01